=== PATIENT | female | born 1985 | race Caucasian/White ===

== ENCOUNTER 2017-01-12 19:43 | Emergency (ER) | payer OTHER ==
[~2017-01-12] VITALS: Ht 154.9 cm; Wt 90.7 kg
[~2017-01-12 19:43] MED LIST: ACET-704 PO; BENZ100C PO; FERR325T58 PO; HYDR-971 PO; ONDA4TAB10 SL; ONDA4TAB7 PO; PANT40TA3 PO; PNV1TABL25 PO; PRED50TA PO; PROAIR RESPICL90 MCG IH
[2017-01-12] MEDS ORDERED: ONDANSETRON PF 4 MG/2 ML VIAL. IV ONE (20:45)
[2017-01-12] MEDS ORDERED: FENTANYL PF 100 MCG/2 ML VIAL. IV ONE (20:45)
[2017-01-12 20:59] LABS: BASO # 0.1 x10^3/uL (0.0-0.2); BASO % 1 % (0-3); EOS % 2 % (0-3); HEMATOCRIT 35.6 % (36.0-47.0); LYMPH # 2.5 x10^3/uL (1.0-4.8); LYMPH % 33 % (24-48); MEAN CORPUSCULAR HEMOGLOBIN 31 pg (25-35); MEAN CORPUSCULAR HGB CONC 34 g/dL (31-37); MEAN CORPUSCULAR VOLUME 93 fL (79-100); MONO % 7 % (0-9); NEUT % 58 % (31-73); PLATELET COUNT 271 x10^3/uL (140-400); RED BLOOD COUNT 3.85 x10^6/uL (3.50-5.40); RED CELL DISTRIBUTION WIDTH 13.2 % (11.5-14.5); WHITE BLOOD COUNT 7.5 x10^3/uL (4.0-11.0)
[2017-01-12 21:04] LABS: CALCIUM 8.9 mg/dL (8.5-10.1); CREATININE 0.5 mg/dL (0.6-1.0); GFR 143.9; POTASSIUM 3.5 mmol/L (3.5-5.1)
[2017-01-12 22:19] LABS: NEG OBC SER NEG; POS OBC SER POS
[2017-01-12 22:32] LABS: BILIRUBIN,URINE NEGATIVE (NEG); GLUCOSE,URINE NEGATIVE (NEG); NITRITE,URINE POSITIVE (NEG); PH,URINE 7.5; PROTEIN,URINE NEGATIVE (NEG-TRACE)
[2017-01-12 22:33] LABS: BACTERIA,URINE MODERATE /HPF (0-FEW); SQUAMOUS EPITHELIAL CELL,UR MOD /LPF
[2017-01-12 22:45] VITALS: BP 108/63
[2017-01-12] MEDS ORDERED: HYDROMORPHONE 2 MG/ML VIAL. IV ONE (23:15)
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
[2017-01-13] MEDS ORDERED: IBUP-1007 PO (00:17)
[2017-01-13] MEDS ORDERED: HYDR-2678 PO (00:17)
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
--- NOTE | 2017-01-15 07:12 | VNOTE ---
CALL BACK NOTE CALL BACK Microbiology 01/12/17 Urine Culture - Final, Complete 01/12/17 Urine Culture Result 1 (ARMAAN) - Final, Complete 01/12/17 Antimicrobic Susceptibility - Final, Complete Attempted to contact patient via the phone number noted on registration. Phone number is no longer in service. Certified letter will be sent to the patient regards to urine culture positive. Patient was not treated with antibiotics.. NICOLAS CONTRERAS NP Jan 15, 2017 07:12
== END 2017-01-13 00:35 | disposition home or self-care (01) ==
LOC: EEVIPCON 19:43 → ER 19:43
DX: S06.0X1A Concussion with loss of consciousness of 30 minutes or less, initial encounter (principal); S00.03XA Contusion of scalp, initial encounter; S10.83XA Contusion of other specified part of neck, initial encounter; S40.012A Contusion of left shoulder, initial encounter; S40.011A Contusion of right shoulder, initial encounter; S80.12XA Contusion of left lower leg, initial encounter; S80.11XA Contusion of right lower leg, initial encounter; F43.10 Post-traumatic stress disorder, unspecified; F90.9 Attention-deficit hyperactivity disorder, unspecified type; Y08.89XA Assault by other specified means, initial encounter; Y93.89 Activity, other specified; Y92.098 Other place in other non-institutional residence as the place of occurrence of the external cause; Y99.8 Other external cause status
CPT/HCPCS: 36415; 70450; 70486; 72125; 73020; 80048; 81001; 81025; 84703; 85027; 87086; 96374; 96375; 99285; J1170; J2405; J3010

== ENCOUNTER 2017-05-19 04:15 | Emergency (ER) | payer OTHER ==
[~2017-05-19] VITALS: Ht 167.6 cm; Wt 97.5 kg
[~2017-05-19 04:15] MED LIST changes: +HYDR-2678 PO; +IBUP-1007 PO
[2017-05-19 04:18] VITALS: BP 135/84
[2017-05-19] MEDS ORDERED: HYDR-2758 PO (04:28)
[2017-05-19] MEDS ORDERED: SULF1TAB24 PO (04:28)
--- NOTE | 2017-05-19 04:28 | PHYS DOC ---
Past Medical History Additional Past Medical Histor: ADHD, insomnia, PTSD, ECTOPIC ,CARPLE YESI. R,bipolar Past Surgical History: Cholecystectomy, Tubal ligation Additional Past Surgical Histo: CARPEL TUNNEL Alcohol Use: None Drug Use: None Adult General Chief Complaint Chief Complaint: INSECT BITE [facility] HPI Patient is a 32 year old female who presents with right anterior knee pain, redness, and warmth that is gradually worsening over the past 21 hours. She denies known injury or bug bite, but is concerned this may be a spider bite. She states there is a burning, aching sensation. She denies measured fever, nausea or vomiting, abdominal pain. She is able to ambulate. Review of Systems Review of Systems Constitutional: Denies fever or chills [] Eyes: Denies change in visual acuity, redness, or eye pain [] HENT: Denies nasal congestion or sore throat [] Respiratory: Denies cough or shortness of breath [] Cardiovascular: No additional information not addressed in HPI [] GI: Denies abdominal pain, nausea, vomiting, bloody stools or diarrhea [] : Denies dysuria or hematuria [] Musculoskeletal: Denies back pain or joint pain [] Integument: Denies rash [] Neurologic: Denies headache, focal weakness or sensory changes [] Endocrine: Denies polyuria or polydipsia [] Allergies Allergies Allergies Coded Allergies Type Severity Reaction Last Updated Verified No Known Drug Allergies 03/22/15 No Physical Exam Physical Exam Constitutional: Well developed, well nourished, no acute distress, non-toxic appearance. [] HENT: Normocephalic, atraumatic, bilateral external ears normal, oropharynx moist, nose normal. [] Eyes: PERRLA, EOMI. [] Neck: Normal range of motion, supple. [] Cardiovascular: Equal extremity pulses, extremities warm and well-perfused [] Lungs & Thorax: Respirations even and unlabored [] Abdomen: soft, no tenderness. [] Skin: Warm, dry. Anterior right knee with approximately 5 x 2 cm area of erythema, warmth, tenderness. There is no crepitance, induration, fluctuance. [ ] Back: Normal range of motion. [] Extremities: No joint tenderness, ROM intact, no edema. [] Neurologic: Alert and oriented X 3, normal motor function, normal sensory function, no focal deficits noted. [] Psychologic: Affect normal, judgement normal, mood normal. [] Current Patient Data Vital Signs Vital Signs Date Time Temp Pulse Resp B/P (MAP) Pulse Ox O2 Delivery O2 Flow Rate FiO2 05/19/17 04:18 98.6 117 18 98 Room Air 98.6 Course & Med Decision Making Course & Med Decision Making Discussed treatment for likely cellulitis. Encouraged follow-up with her primary care doctor (of which she states she has an appointment in 4 days). Return precautions given. She understands and agrees with plan. Dragon Disclaimer Dragon Disclaimer This electronic medical record was generated, in whole or in part, using a voice recognition dictation system. Departure Departure Impression: Primary Impression: Cellulitis Disposition: HOME, SELF-CARE Condition: STABLE Referrals: SOFI LI MD (PCP) Patient Instructions: Cellulitis, Ibms-ex-Viid Additional Instructions: Take Bactrim to help with infection. Take ibuprofen to help with pain and swelling. Take hydrocodone as needed for severe pain. Do not drink, drive or operate heavy machinery after taking hydrocodone as it may make you sleepy. Follow-up with your primary care doctor. Return for any concerns. Scripts Hydrocodone Bit/Acetaminophen (HYDROCODONE-APAP 5-325 ) 1 Each Tablet 1 TAB PO PRN Q6HRS Y for PAIN, #8 TAB 0 Refills Prov: Rolando GORDON MD 05/19/17 Sulfamethoxazole/Trimethoprim (BACTRIM DS TABLET) 1 Each Tablet 1 TAB PO BID, #14 TAB Prov: Rolando GORDON MD 05/19/17 Problem Qualifiers Primary Impression: Cellulitis Site of cellulitis: extremity Site of cellulitis of extremity: lower extremity Laterality: right Qualified Codes: L03.115 - Cellulitis of right lower limb Rolando GORDON MD May 19, 2017 04:28
== END 2017-05-19 04:42 | disposition home or self-care (01) ==
LOC: ER 04:15
DX: L03.115 Cellulitis of right lower limb (principal); F90.9 Attention-deficit hyperactivity disorder, unspecified type; F43.10 Post-traumatic stress disorder, unspecified; G56.00 Carpal tunnel syndrome, unspecified upper limb; G47.00 Insomnia, unspecified; F31.9 Bipolar disorder, unspecified; Z90.49 Acquired absence of other specified parts of digestive tract; Z98.51 Tubal ligation status
CPT/HCPCS: 99283

== ENCOUNTER 2017-06-15 00:50 | Emergency (ER) | payer OTHER ==
[~2017-06-15] VITALS: Ht 170.2 cm; Wt 86.2 kg
[~2017-06-15 00:50] MED LIST changes: +HYDR-2758 PO; +SULF1TAB24 PO
[2017-06-15 01:05] VITALS: BP 160/76
[2017-06-15] MEDS ORDERED: predniSONE 20 MG TABLET PO ONE (01:30)
[2017-06-15] MEDS ORDERED: PRED50TA PO (01:56)
--- NOTE | 2017-06-15 01:56 | PHYS DOC ---
Past Medical History Past Medical History: No Pertinent History Additional Past Medical Histor: ADHD, insomnia, PTSD, ECTOPIC ,CARPLE YESI. R,bipolar Past Surgical History: Cholecystectomy, Tubal ligation Additional Past Surgical Histo: CARPEL TUNNEL Alcohol Use: None Drug Use: None Adult General Chief Complaint Chief Complaint: Congestion HPI HPI Patient is a 32 year old female who presents here today complaining of cough and congestion as been going on for approximately 1 week. Patient has any fevers shakes chills. Patient reports she a nonproductive cough. Patient reports she's had some nausea vomiting and diarrhea. Patient has no past medical history. Patient has no history of hypertension diabetes liver longer kidney problems. Patient does not smoke drink or do any drugs. Patient is not allergic to anything. Patient reports she does have sick family contacts. Patient reports her son has very similar symptoms. Patient's physical exam the ER has been unremarkable. Patient has some slight an extra katie wheezing that's intermittent in nature. Patient has clear rhinorrhea. Patient's throat was clear. TMs were normal. Patient does not appear to be in any acute respirator distress. Patient is a bleeding the ER with any shortness of breath. Patient able speak in full sentences. Patient's chest x-ray was unremarkable. No infiltrates or effusions. Pulse ox was 99% on room air. This is normal as interpreted by Dr. Banks. While in the ER the patient received prednisone and will be discharged home on a protrusion for prednisone. Review of Systems Review of Systems Constitutional: Denies fever or chills [] Eyes: Denies change in visual acuity, redness, or eye pain [] All other review systems are negative except as documented in the history of present illness portion. Current Medications Current Medications Current Medications Medications (Trade) Dose Ordered Sig/Susan Start Time Stop Time Status Last Admin Dose Admin Prednisone (Prednisone) 40 mg 1X ONCE 06/15/17 01:30 06/15/17 01:31 DC 06/15/17 01:47 40 MG Allergies Allergies Allergies Coded Allergies Type Severity Reaction Last Updated Verified No Known Drug Allergies 03/22/15 No Physical Exam Physical Exam Constitutional: Well developed, well nourished, no acute distress, non-toxic appearance. [] HENT: Normocephalic, atraumatic, bilateral external ears normal, oropharynx moist, no oral exudates, nose normal. [] Eyes: PERRLA, EOMI, conjunctiva normal, no discharge. [] Neck: Normal range of motion, no tenderness, supple, no stridor. [] Cardiovascular:Heart rate regular rhythm, no murmur [] Lungs & Thorax: Bilateral breath sounds clear to auscultation [] Abdomen: Bowel sounds normal, soft, no tenderness, no masses, no pulsatile masses. [] Skin: Warm, dry, no erythema, no rash. [] Back: No tenderness, no CVA tenderness. [] Extremities: No tenderness, no cyanosis, no clubbing, ROM intact, no edema. [] Neurologic: Alert and oriented X 3, normal motor function, normal sensory function, no focal deficits noted. [] Psychologic: Affect normal, judgement normal, mood normal. [] Current Patient Data Vital Signs Vital Signs Date Time Temp Pulse Resp B/P (MAP) Pulse Ox O2 Delivery O2 Flow Rate FiO2 06/15/17 01:05 98.2 105 16 160/76 (104) 97 Room Air 98.2 EKG EKG [] Radiology/Procedures Radiology/Procedures [] Course & Med Decision Making Course & Med Decision Making Pertinent Labs and Imaging studies reviewed. (See chart for details) [] Dragon Disclaimer Dragon Disclaimer This electronic medical record was generated, in whole or in part, using a voice recognition dictation system. Departure Departure Impression: Primary Impression: Upper respiratory infection Additional Impression: URI (upper respiratory infection) Disposition: 01 HOME, SELF-CARE Condition: IMPROVED Referrals: SOFI LI MD (PCP) Patient Instructions: Upper Respiratory Infection, Adult Additional Instructions: Follow-up with her primary care doctor in 2-3 days. Scripts Prednisone (PREDNISONE) 50 Mg Tablet 1 TAB PO DAILY, #5 TAB Prov: SHANTANU SHAH MD 06/15/17 Problem Qualifiers SHANTANU SHAH MD Jun 15, 2017 01:56
--- NOTE | 2017-06-15 07:53 | RAD ---
Indication cough for 2 weeks. Frontal and lateral views of the chest were obtained and are compared to an examination 02/05/2016. The heart and pulmonary vessels appear normal. The lungs are clear. There has not been a significant change in the appearance of the chest compared to the previous exam. IMPRESSION: No acute or focal process. No significant change
== END 2017-06-15 02:07 | disposition home or self-care (01) ==
LOC: ER 00:50
DX: J06.9 Acute upper respiratory infection, unspecified (principal); R19.7 Diarrhea, unspecified; F90.9 Attention-deficit hyperactivity disorder, unspecified type; G47.00 Insomnia, unspecified; F43.10 Post-traumatic stress disorder, unspecified; Z90.49 Acquired absence of other specified parts of digestive tract
CPT/HCPCS: 71020; 99284; J7512

== ENCOUNTER 2018-01-08 16:57 | Emergency (ER) | payer OTHER ==
[2018-01-08 17:44] LABS: URINE HCG POC HCG NEGATIVE (Negative)
[2018-01-08 18:06] LABS: ADD MAN DIFF? NO
[2018-01-08] MEDS: fentaNYL PF VIAL 100 MCG/2 ML VIAL IV ×2 (18:06)
[2018-01-08] MEDS: ONDANSETRON PF 4 MG/2 ML VIAL. IV ×2 (18:06)
[2018-01-08] MEDS: KETOROLAC 30 MG/ML INJ. IV ×2 (18:06)
[2018-01-08] MEDS: IV NORMAL SALINE 1000ML BAG 1,000 ML IV ×2 (18:06)
[2018-01-08 18:09] LABS: BASO % 1 % (0-3); EOS # 0.2 x10^3/uL (0.0-0.7); EOS % 3 % (0-3); HEMATOCRIT 38.7 % (36.0-47.0); HEMOGLOBIN 13.4 g/dL (12.0-15.5); LYMPH # 1.7 x10^3/uL (1.0-4.8); LYMPH % 26 % (24-48); MEAN CORPUSCULAR HEMOGLOBIN 32 pg (25-35); MEAN CORPUSCULAR HGB CONC 35 g/dL (31-37); MEAN CORPUSCULAR VOLUME 91 fL (79-100); MONO # 0.4 x10^3/uL (0.0-1.1); MONO % 6 % (0-9); NEUT # 4.3 x10^3uL (1.8-7.7); NEUT % 64 % (31-73); PLATELET COUNT 184 x10^3/uL (140-400); RED BLOOD COUNT 4.25 x10^6/uL (3.50-5.40); RED CELL DISTRIBUTION WIDTH 12.9 % (11.5-14.5); WHITE BLOOD COUNT 6.6 x10^3/uL (4.0-11.0)
[2018-01-08 18:11] LABS: BILIRUBIN,URINE SMALL (NEG); CLARITY,URINE CLOUDY; COLOR,URINE AMBER; GLUCOSE,URINE NEGATIVE (NEG); NITRITE,URINE NEGATIVE (NEG); PROTEIN,URINE NEGATIVE (NEG-TRACE); UROBILINOGEN,URINE 0.2 mg/dL (0.2 mg/dL)
[2018-01-08] MEDS: IOHEXOL 300 MG/ML 100ML VIAL. IV ×2 (18:15)
[2018-01-08 18:19] LABS: AMORPHOUS SEDIMENT,UR PRESENT /HPF; BACTERIA,URINE MODERATE /HPF (0-FEW); RBC,URINE 0 /HPF (0-2); SQUAMOUS EPITHELIAL CELL,UR MANY /LPF; WBC,URINE 0 /HPF (0-4)
[2018-01-08 18:31] LABS: ANION GAP 12 (6-14); BLOOD UREA NITROGEN 10 mg/dL (7-20); BUN/CREATININE RATIO 17 (6-20); CALCIUM 8.9 mg/dL (8.5-10.1); CARBON DIOXIDE 26 mmol/L (21-32); CHLORIDE 102 mmol/L (98-107); CREATININE 0.6 mg/dL (0.6-1.0); GFR 115.9; GLUCOSE 112 mg/dL (70-99); POTASSIUM 3.1 mmol/L (3.5-5.1); SODIUM 140 mmol/L (136-145)
[2018-01-08 18:36] LABS: ALBUMIN 3.6 g/dL (3.4-5.0); ALBUMIN/GLOBULIN RATIO 0.9 (1.0-1.7); ALK PHOS 75 U/L (46-116); ALT (SGPT) 24 U/L (14-59); AST (SGOT) 14 U/L (15-37); LIPASE 113 U/L (73-393); TOTAL BILIRUBIN 0.1 mg/dL (0.2-1.0); TOTAL PROTEIN 7.4 g/dL (6.4-8.2)
[2018-01-08] MEDS: POTASSIUM CHLORIDE 20 MEQ TABLET.ER. PO ×2 (20:14)
== END 2018-01-08 20:17 | disposition home or self-care (01) ==
LOC: ER 20:17
DX: Z90.49 Acquired absence of other specified parts of digestive tract (principal); Z98.51 Tubal ligation status
CPT/HCPCS: 36415; 74177; 80053; 81001; 81025; 83690; 85025; 87086; 96361; 96374; 96375; 99285-25; J1885; J2405; J3010; J7030; Q9967

== ENCOUNTER 2018-08-05 01:10 | Emergency (ER) | payer OTHER ==
[2018-01-15 11:42] VITALS: BP 118/70
[~2018-08-05 01:10] MED LIST changes: +BUPR150T15 PO; +BUPR1FIL5 SL; +CLON0.1T PO; +DEXT5TAB27 PO; +DIAZ5TAB4 PO; +DICY10CA3 PO; +OXCA600T9 PO; +TRAZ-86 PO; +ZOLP5TAB PO
[2018-08-05] MEDS ORDERED: LIDOCAINE 2GM/500ML PREMIX BAG. IV ONE (02:00)
[2018-08-05] MEDS ORDERED: EPINEPHrine SYRINGE 1 MG/10 ML SYRINGE ONE (02:00)
[2018-08-05] MEDS ORDERED: NALOXONE 0.4 MG/ML VIAL. ONE (02:00)
[2018-08-05 02:01] LABS: BASO # 0.1 x10^3/uL (0.0-0.2); BASO % 1 % (0-3); EOS % 1 % (0-3); HEMATOCRIT 37.2 % (36.0-47.0); HEMOGLOBIN 12.3 g/dL (12.0-15.5); LYMPH # 6.6 x10^3/uL (1.0-4.8); LYMPH % 70 % (24-48); MEAN CORPUSCULAR HEMOGLOBIN 34 pg (25-35); MEAN CORPUSCULAR HGB CONC 33 g/dL (31-37); MEAN CORPUSCULAR VOLUME 102 fL (79-100); MONO # 0.3 x10^3/uL (0.0-1.1); MONO % 3 % (0-9); NEUT # 2.4 x10^3uL (1.8-7.7); NEUT % 26 % (31-73); PLATELET COUNT 176 x10^3/uL (140-400); RED BLOOD COUNT 3.63 x10^6/uL (3.50-5.40); RED CELL DISTRIBUTION WIDTH 14.2 % (11.5-14.5); WHITE BLOOD COUNT 9.5 x10^3/uL (4.0-11.0)
[2018-08-05 02:19] LABS: ALBUMIN 2.9 g/dL (3.4-5.0); ALK PHOS 83 U/L (46-116); ALT (SGPT) 208 U/L (14-59); ANION GAP 18 (6-14); AST (SGOT) 208 U/L (15-37); BLOOD UREA NITROGEN 10 mg/dL (7-20); CARBON DIOXIDE 19 mmol/L (21-32); CHLORIDE 104 mmol/L (98-107); CREATININE 1.2 mg/dL (0.6-1.0); DIRECT BILIRUBIN < 0.1 mg/dL (0.0-0.2); GFR 51.7; GLUCOSE 446 mg/dL (70-99); POTASSIUM 3.9 mmol/L (3.5-5.1); SODIUM 141 mmol/L (136-145); TOTAL BILIRUBIN 0.2 mg/dL (0.2-1.0); TOTAL PROTEIN 5.7 g/dL (6.4-8.2)
[2018-08-05] MEDS ORDERED: NALOXONE 2 MG/2 ML DISP.SYRIN. ONE (02:44)
--- NOTE | 2018-08-05 03:10 | PHYS DOC ---
Past Medical History Past Medical History: Other Additional Past Medical Histor: ADHD, insomnia, PTSD, ECTOPIC ,CARPLE YESI. R,bipolar Past Surgical History: Cholecystectomy, Tubal ligation, Other Additional Past Surgical Histo: R CARPAL TUNNEL Alcohol Use: None Drug Use: None Adult General Chief Complaint Chief Complaint: CPR/FULL ARREST HPI HPI Patient is a 33 year old female who presents in full cardiopulmonary arrest. The patient arrives via EMS. According to EMS, the patient was found by her fianc to be unresponsive. There was a very small if any reported downtime as the patient was last seen to be normal just prior to when she was found. According to EMS, the patient had ventricular fibrillation on arrival. ACLS guidelines were followed and route to the hospital. The patient did have an ET tube placed and received multiple rounds of epinephrine. She also received multiple defibrillations prior to arrival at the hospital. On arrival, the patient had no signs of life. She was noted to be again in ventricular fibrillation and she did receive an additional defibrillation. ACLS protocols were continued. Review of Systems Review of Systems No ROS is available as the patient is in full cardiopulmonary arrest All other systems were reviewed and found to be within normal limits, except as documented in this note. Current Medications Current Medications Current Medications Medications (Trade) Dose Ordered Sig/Susan Start Time Stop Time Status Last Admin Dose Admin Naloxone HCl (Narcan) 2 mg STK-MED ONCE 08/05/18 02:44 08/05/18 02:45 DC Allergies Allergies Allergies Coded Allergies Type Severity Reaction Last Updated Verified No Known Drug Allergies 01/15/18 No Physical Exam Physical Exam Constitutional: Well developed, well nourished, female with no signs of life HENT: Normocephalic, atraumatic Eyes: pupils dilated to 8+ mm and fixed. equal bilaterally Cardiovascular: no pulse other than during compressions Lungs & Thorax: ET tube in place. bilateral chest rise/fall with ventilations but no respiratory effort otherwise. Good air mvt with ventilations, bilaterally Abdomen: soft Skin: pale, cool Extremities: cyanotic distally, no peripheral pulses, no edema Neurologic: lifeless, no mvt, no respirations, no eyelid responses, Current Patient Data Lab Values Laboratory Tests Test 08/05/18 01:20 White Blood Count 9.5 x10^3/uL (4.0-11.0) Red Blood Count 3.63 x10^6/uL (3.50-5.40) Hemoglobin 12.3 g/dL (12.0-15.5) Hematocrit 37.2 % (36.0-47.0) Mean Corpuscular Volume 102 fL (79-100) H Mean Corpuscular Hemoglobin 34 pg (25-35) Mean Corpuscular Hemoglobin Concent 33 g/dL (31-37) Red Cell Distribution Width 14.2 % (11.5-14.5) Platelet Count 176 x10^3/uL (140-400) Neutrophils (%) (Auto) 26 % (31-73) L Lymphocytes (%) (Auto) 70 % (24-48) H Monocytes (%) (Auto) 3 % (0-9) Eosinophils (%) (Auto) 1 % (0-3) Basophils (%) (Auto) 1 % (0-3) Neutrophils # (Auto) 2.4 x10^3uL (1.8-7.7) Lymphocytes # (Auto) 6.6 x10^3/uL (1.0-4.8) H Monocytes # (Auto) 0.3 x10^3/uL (0.0-1.1) Eosinophils # (Auto) 0.0 x10^3/uL (0.0-0.7) Basophils # (Auto) 0.1 x10^3/uL (0.0-0.2) Platelet Estimate Pending Sodium Level 141 mmol/L (136-145) Potassium Level 3.9 mmol/L (3.5-5.1) Chloride Level 104 mmol/L (98-107) Carbon Dioxide Level 19 mmol/L (21-32) L Anion Gap 18 (6-14) H Blood Urea Nitrogen 10 mg/dL (7-20) Creatinine 1.2 mg/dL (0.6-1.0) H Estimated GFR (Cockcroft-Gault) 51.7 Glucose Level 446 mg/dL (70-99) H Calcium Level 8.0 mg/dL (8.5-10.1) L Total Bilirubin 0.2 mg/dL (0.2-1.0) Direct Bilirubin < 0.1 mg/dL (0.0-0.2) Aspartate Amino Transferase (AST) 208 U/L (15-37) H Alanine Aminotransferase (ALT) 208 U/L (14-59) H Alkaline Phosphatase 83 U/L (46-116) Troponin I Quantitative 0.423 ng/mL (0.000-0.055) Total Protein 5.7 g/dL (6.4-8.2) L Albumin 2.9 g/dL (3.4-5.0) L Laboratory Tests 08/05/18 01:20 Laboratory Tests 08/05/18 01:20 EKG EKG [] Radiology/Procedures Radiology/Procedures [] Course & Med Decision Making Course & Med Decision Making Pertinent Labs and Imaging studies reviewed. (See chart for details) Patient is evaluated immediately on arrival to the emergency department. At the time of arrival, the patient had undergone CPR for 40 minutes. She arrives with no signs of life as documented above. She did have ventricular fibrillation on arrival and was defibrillated but no organized cardiac activity was regained. Resuscitative efforts were continued for an additional 20 minutes after the patient arrived. She did have one period of PEA. ACLS guidelines were followed during this time. Please refer to nursing documentation for exact times, doses and medications which were given. Ultimately, the patient had a rhythm of asystole. This was confirmed in 3 leads. Bedside ultrasound was performed. There was a very good window and clear view of the myocardium which did not have any fibrillation organized activity otherwise. After 20 minutes in the emergency department, and 60 minutes total, efforts were ceased. Lens Cleaner was notified of the time of . He was already aware of this case. Subsequently, I spoke to the patient's boyfriend who stated he was with her when the patient came unresponsive. He stated that he was laying in bed next to her and they were speaking. She stopped answering questions and he looked over at her and found her to be unresponsive. He denies that she had been ill lately. He denies that the patient had any other health conditions. He does state that the patient's father in his early 40s from a heart attack. Dragon Disclaimer Dragon Disclaimer This electronic medical record was generated, in whole or in part, using a voice recognition dictation system. Departure Departure Referrals: SOFI LI MD (PCP) AMAYA ROCHA DO Aug 05, 2018 03:10
[2018-08-05 05:29] LABS: % BANDS 9 % (0-9); % EOS 1 % (0-5); % LYMPHS 77 % (24-48); % MONOS 2 % (0-10); % MYELOS 1 % (0-0); % SEGS 10 % (35-66)
[2018-08-05 05:30] LABS: PLT ESTIMATE ADEQUATE (ADEQUATE)
[2018-08-07] MEDS ORDERED: LIDOCAINE 2GM/500ML PREMIX BAG. IV ONE (11:30)
[2018-08-07] MEDS ORDERED: EPINEPHrine SYRINGE 1 MG/10 ML SYRINGE ONE (11:30)
[2018-08-07] MEDS ORDERED: NALOXONE 0.4 MG/ML VIAL. ONE (11:30)
== END 2018-08-05 05:05 | disposition expired ==
LOC: ER 01:10
DX: I46.9 Cardiac arrest, cause unspecified (principal)
CPT/HCPCS: 36415; 51702; 80048; 80076; 84484; 85007; 85025; 92950; 99285; J0171; J2310